=== PATIENT | male | born 1955 | race Caucasian/White ===

== ENCOUNTER → 2020-04-12 | Outpatient (CLI) | payer BC | END | disposition home or self-care (01) | LOC: OIH 08:37 | PROVIDERS: ATTEND Internal Medicine | DX: J45.909 Unspecified asthma, uncomplicated (principal); I10 Essential (primary) hypertension; M47.814 Spondylosis without myelopathy or radiculopathy, thoracic region; I70.0 Atherosclerosis of aorta | CPT/HCPCS: 71046 ==

== ENCOUNTER → 2020-08-12 | Outpatient (CLI) | payer BC | END | disposition home or self-care (01) | LOC: RAH 08:40 | PROVIDERS: ATTEND Internal Medicine Gastroenterology | DX: K21.9 Gastro-esophageal reflux disease without esophagitis (principal); R13.10 Dysphagia, unspecified | CPT/HCPCS: 74240 ==

== ENCOUNTER → 2022-11-07 | Outpatient (CLI) | payer BC | END | disposition home or self-care (01) | LOC: LAB 13:34 | PROVIDERS: ATTEND Otolaryngology Plastic Surgery within the Head & Neck | DX: H90.3 Sensorineural hearing loss, bilateral (principal) | CPT/HCPCS: 36415; 82565; 84520 ==

== ENCOUNTER → 2022-11-13 | Outpatient (CLI) | payer BC ==
[~2022-11-13] MED LIST: GADOTERATE MEGLUMINE 10 MMOL/20 ML VIAL IV ONE
== END | disposition home or self-care (01) ==
LOC: RAH 13:47
PROVIDERS: ATTEND Otolaryngology Plastic Surgery within the Head & Neck
DX: H90.3 Sensorineural hearing loss, bilateral (principal)
CPT/HCPCS: 70553; A9575

== ENCOUNTER → 2024-08-13 | Outpatient (CLI) | payer BC ==
--- NOTE | 2024-08-13 11:06 | HMCIMG ---
CT ABDOMEN/PELVIS W/O CONTRAST HISTORY: Benign lipoma spleen and subcutaneous tissue of COMPARISON: None TECHNIQUE: Multiple sequential axial images of the abdomen and pelvis were obtained from the dome of the diaphragm through symphysis pubis. Patient was not given contrast through intravenous route. Oral contrast was not given. FINDINGS: No pleural effusion is seen bilaterally. There is no evidence of parenchymal disease or pulmonary nodule of the visualized lower lungs. Degenerative changes of the thoracolumbar spine are present. The heart is not enlarged. Coronary arterial calcifications are seen. No definite CT evidence of subcutaneous soft tissue mass is seen. The liver, spleen, adrenal glands and pancreas are unremarkable. There is no evidence of hydronephrosis bilaterally. No evidence of renal stone is seen. Fecal material is seen in the colon. There are normal size retroperitoneal and mesenteric lymph nodes. No ascites is seen. Atherosclerotic changes are present. CT evidence of acute appendicitis is seen. Pelvic sidewalls are symmetric bilaterally. Bladder is moderately distended. IMPRESSION: 1. No CT evidence of subcutaneous soft tissue mass is seen. CT was performed with one or more following dose reduction techniques: automated exposure control, adjustment of the mA and kv according to patient's size, or use of a iterative reconstruction technique.
== END | disposition home or self-care (01) ==
LOC: RAH 10:17
PROVIDERS: ATTEND Internal Medicine
DX: D17.1 Benign lipomatous neoplasm of skin and subcutaneous tissue of trunk (principal); R23.8 Other skin changes; I25.10 Atherosclerotic heart disease of native coronary artery without angina pectoris; N32.89 Other specified disorders of bladder; M47.815 Spondylosis without myelopathy or radiculopathy, thoracolumbar region
CPT/HCPCS: 74176

== ENCOUNTER → 2024-11-12 | Outpatient (CLI) | payer BC ==
--- NOTE | 2024-11-12 12:57 | HMCIMG ---
PA AND LATERAL CHEST RADIOGRAPH INDICATION: Essential (primary) hypertension COMPARISON: 04/12/2020 FINDINGS: Heart size is normal. Mild calcific plaque is present along the aortic arch bui. The pulmonary vascularity and jojo appear normal. No abnormal pulmonary parenchymal opacity or consolidation identified. No significant pleural effusion noted. No pneumothorax detected. IMPRESSION: No radiographic evidence for any acute cardiopulmonary process.
== END | disposition home or self-care (01) ==
LOC: RAH 11:53
PROVIDERS: ATTEND Internal Medicine
DX: I70.0 Atherosclerosis of aorta (principal); I10 Essential (primary) hypertension
CPT/HCPCS: 71046